=== PATIENT | male | born 1950 | race African-American/Black ===

== ENCOUNTER 2019-08-20 13:09 | Emergency (ER) | payer OTHER, MEDICARE ==
[~2019-08-20 13:09] MED LIST: Iopamidol 370 76% 50 ML VIAL FS ONE; Iopamidol-370 76% 500 ML 1 ML ONE
[2019-08-20 15:54] LABS: #Basophils 0.1 thou/uL (0.0-0.2); #Eosinphils 0.2 thou/uL (0.0-0.7); #Lymphocytes 2.3 thou/uL (1.20-3.40); #Monocytes 0.6 thou/uL (0.11-0.59); #Neutrophils 4.1 thou/uL (1.40-6.50); %Basophils 1.6 % (0.0-1.0); %Eosinophils 2.8 % (0.0-10.0); %Lymphocytes 31.3 % (21.0-51.0); %Monocytes 8.1 % (0.0-10.0); %Neutrophils 56.2 % (42.0-75.0); Hemoglobin 14.8 g/dL (14.0-18.0); Mean Corpuscular HGB CONC 33.7 g/dL (32.0-36.0); Mean Platelet Volume 6.9 fL (7.4-10.4); Platelet Count 307 thou/uL (130-400); RBC Distribution Width 11.5 % (11.5-14.5); Red Blood Cell (RBC) Count 4.63 mill/uL (4.70-6.10); White Blood Cell (WBC) Count 7.4 thou/uL (4.8-10.8)
[2019-08-20] MEDS ORDERED: Ondansetron PF 4 MG/2 ML Vial ONE (16:07)
[2019-08-20 16:21] LABS: ALT (SGPT) 11 U/L (8-55); AST (SGOT) 11 U/L (5-34); Albumin 3.9 g/dL (3.4-4.8); Alkaline Phosphatase 77 U/L (40-110); Anion Gap 10 mmol/L (10-20); BUN (Urea Nitrogen) 12 mg/dL (8.4-25.7); Bilirubin, Total 1.1 mg/dL (0.2-1.2); CK (CPK) 161 U/L (30-200); Calc. Creatinine Clearance 0 mL/min (70-130); Calcium 9.1 mg/dL (7.8-10.44); Carbon Dioxide 26 mmol/L (23-31); Chloride 106 mmol/L (98-107); Estimated GFR-MDRD Greater than 90; Globulin 2.9 g/dL (2.4-3.5); Glucose 87 mg/dL (80-115); Lipase 25 U/L (8-78); Potassium 4.3 mmol/L (3.5-5.1); Protein, Total 6.8 g/dL (5.8-8.1); Sodium 138 mmol/L (136-145)
[2019-08-20 19:00] LABS: Bilirubin Negative (Negative); Blood, Urine Negative (Negative); Clarity Clear (Clear); Glucose, Urine (Dipstick) Normal (Negative); Leukocyte Negative Leu/uL (Negative); Nitrite Negative (Negative); Protein, Urine (Dipstick) Negative (Neg-Trace); Urobilinogen Normal mg/dL (Less than 2)
--- NOTE | 2019-08-20 19:27 | CT ---
CT ABDOMEN AND PELVIS WITH IV CONTRAST: HISTORY: Abdominal bloating and reported rectal problems. COMPARISON: PET CT scan examination from 08/20/2019. FINDINGS: There is dependent atelectasis. The lung bases are otherwise clear. No discrete pulmonary nodule or m ass is identified and there is no pleural effusion of either lung base. There is suggestion of a tiny sliding type hiatal hernia. Minimal vascular calcifications are seen in the abdominal aorta. The liver, spleen, pancreas, bilateral adrenal glands, and right kidney demonstrate a normal CT appea [place]. A subcentimeter, too small to characterize, hypodense lesion is seen in the inferior pole left kidney. The urinary bladder has a normal CT appearance. There is colonic diverticulosis seen throughout the colon. There is suggested colonic wall thickening involving the distal descending colon, as well as the sigmoid colon to the rectum, which is probably related to incomplete distention as this was not appreciated on the PET CT scan examination obtained earlier on today's date. There is focal thickening involving the rectum, likely related to the patie nt's known neoplastic process involving the rectum. No adjacent enlarged lymph nodes are appreciated, although a few mildly prominent lymph nodes are seen along the left lateral pelvis, which are overal l nonspecific and again not enlarged. There is suggested thickening in the region of the pylorus of the stomach but this was also not appre ciated on the recent PET CT exam and is likely attributable to incomplete distention and probably per istalsis. Increased density material is again seen in the gallbladder, likely related to cholelithiasis. No free fluid, fluid collection or lymphadenopathy is appreciated in the abdomen or pelvis. Fat conta ining left inguinal canal is seen. IMPRESSION: 1. Thickening involving the rectum likely attributable to the patient's known neoplastic process. 2. No enlarged lymph nodes are seen by CT size criteria. 3. Cholelithiasis. 5. Colonic diverticulosis. 6. Slight grade 1 anterolisthesis of L5 on S1, likely related to prominent facet degenerative changes at this level. 8. Small subcentimeter lucency within the L2 vertebral body which is difficult to further characteriz e, but is probably related to a small hemangioma as opposed to a lytic lesion related to metastatic d isease. POS: OFF
== END 2019-08-20 19:35 | disposition home or self-care (01) ==
LOC: ERS 13:09
DX: C20 Malignant neoplasm of rectum (principal); F43.10 Post-traumatic stress disorder, unspecified; F20.9 Schizophrenia, unspecified; Z79.899 Other long term (current) drug therapy; Z79.82 Long term (current) use of aspirin
CPT/HCPCS: 36415; 74177; 80053; 81003; 82550; 83690; 85025; 96361; 96374; J2405; Q9967

== ENCOUNTER 2019-09-11 07:39 | Outpatient (CLI) | payer MEDICARE ==
[2019-09-11 14:44] LABS: #Basophils 0.1 thou/uL (0.0-0.2); #Eosinphils 0.2 thou/uL (0.0-0.7); #Monocytes 0.7 thou/uL (0.11-0.59); #Neutrophils 3.4 thou/uL (1.40-6.50); %Basophils 1.4 % (0.0-1.0); %Eosinophils 3.5 % (0.0-10.0); %Lymphocytes 30.9 % (21.0-51.0); %Monocytes 10.5 % (0.0-10.0); %Neutrophils 53.7 % (42.0-75.0); Hemoglobin 15.3 g/dL (14.0-18.0); Mean Corpuscular HGB CONC 33.5 g/dL (32.0-36.0); Mean Corpuscular Hemoglobin 32.1 pg (27.0-31.0); Mean Platelet Volume 7.3 fL (7.4-10.4); Platelet Count 314 thou/uL (130-400); RBC Distribution Width 11.5 % (11.5-14.5); Red Blood Cell (RBC) Count 4.75 mill/uL (4.70-6.10); White Blood Cell (WBC) Count 6.4 thou/uL (4.8-10.8)
[2019-09-11 15:05] LABS: Anion Gap 12 mmol/L (10-20); BUN (Urea Nitrogen) 10 mg/dL (8.4-25.7); Calc. Creatinine Clearance 0 mL/min (70-130); Calcium 9.5 mg/dL (7.8-10.44); Carbon Dioxide 27 mmol/L (23-31); Chloride 105 mmol/L (98-107); Estimated GFR-MDRD Greater than 90; Glucose 82 mg/dL (80-115); Potassium 4.3 mmol/L (3.5-5.1); Sodium 140 mmol/L (136-145)
== END 2019-09-11 07:40 | disposition home or self-care (01) ==
LOC: LABBT 07:39
PROVIDERS: ATTEND Surgery
DX: Z01.812 Encounter for preprocedural laboratory examination (principal); C20 Malignant neoplasm of rectum
CPT/HCPCS: 80048; 85025

== ENCOUNTER 2019-09-12 09:52 | Day surgery (SDC) | payer MEDICARE ==
[2019-09-12] MEDS ORDERED: Midazolam HCl 2 mg/2 ml Vial ONE (12:11)
[2019-09-12] MEDS ORDERED: PROPOFOL 200 MG/20 ML VIAL ONE (13:02)
[2019-09-12] MEDS ORDERED: Bupivacaine 0.25% HCL 30 ML VIAL ONE (13:28)
[2019-09-12] MEDS ORDERED: Lidocaine 1% w/Epinephrine 1:100K 20 ML VIAL ONE (13:28)
--- NOTE | 2019-09-12 13:56 | RAD ---
RADIOGRAPH CHEST 1 VIEW: DATE: 09/12/2019 HISTORY: 69-year-old male status post MediPort placement. FINDINGS: There are no airspace densities, pulmonary edema, pneumothorax, or cardiomegaly. The lateral costophr enic angles are sharp. There is a vascular access port descending from the medial aspect of the right neck with distal tip overlying the right hilum, at the expected level of the SVC. IMPRESSION: 1. Right-sided implantable vascular access port. No pneumothorax. 2. No acute cardiopulmonary findings.
--- NOTE | 2019-09-12 14:04 | OP ---
DATE OF PROCEDURE: 09/12/2019 PREOPERATIVE DIAGNOSIS: Rectal adenocarcinoma, locally invasive. POSTOPERATIVE DIAGNOSIS: Rectal adenocarcinoma, locally invasive. PROCEDURE PERFORMED: Tunneled central line with subcutaneous port (MediPort CT injectable). ANESTHESIA: TIVA and local. ESTIMATED BLOOD LOSS: Minimal. COMPLICATIONS: None. SPECIMEN: None. FINDINGS: The tip of the catheter was at the atriocaval junction. DESCRIPTION OF PROCEDURE: The patient was taken to the operating room and laid supine on the operating room table. After general anesthetic was obtained, the bilateral chest and neck was prepped and draped in a sterile fashion. Local anesthetic infiltrated over the right internal jugular vein. Internal jugular vein was cannulated using a 22-gauge Finder needle followed by a Seldinger needle. Wire was passed into the superior vena cava under fluoro guidance. The dilator was used as a guide to dilate the internal jugular vein with the introducer sheath. This was placed over the wire under fluoro guidance. A carlitos had been made at the wire entrance site. A separate 3-cm incision was made in the right upper chest. Subcutaneous pocket was made below the lower incision. Tubing for the MediPort tunneled from the inferior to the superior incision. The wire and dilator were removed and the end of the catheter sewed into the sheath. The sheath was peeled away. The tip of the catheter was at the atriocaval junction. MediPort tubing was cut to fit the MediPort at the lower incision, connected to the MediPort, sewn to the chest wall in the subcutaneous pocket using Prolene. The wounds were irrigated. Local anesthetic was applied. The port was flushed using heparin flush. All incisions were closed using 3-0 Vicryl, 4-0 Monocryl, and Dermabond. The patient was sent to Recovery in stable condition. All instrument counts, needle counts, and lap counts were correct. Job ID: [id number]
== END 2019-09-12 15:00 | disposition home or self-care (01) ==
LOC: SDC 09:52
PROVIDERS: ATTEND Surgery
PROC: 0JH60WZ Insertion of Totally Implantable Vascular Access Device into Chest Subcutaneous Tissue and Fascia, Open Approach (ICD-10-PCS; principal; 2019-09-12)
DX: C20 Malignant neoplasm of rectum (principal); Z79.82 Long term (current) use of aspirin; Z79.899 Other long term (current) drug therapy; Z88.0 Allergy status to penicillin
CPT/HCPCS: 71045; J0690; J1642; J2250; J2704; S0020